=== PATIENT | male | born 1995 | race Two or more races ===

== ENCOUNTER 2023-03-28 19:11 | Inpatient (IN) | payer OTHER ==
[2023-03-28 22:33] VITALS: BMI 24.7
[2023-03-28] MEDS ORDERED: NALOXONE HCL 0.4 MG/ML VIAL IM PRN (23:52)
[2023-03-28] MEDS ORDERED: BISMUTH SUBSALICYLATE 524 MG/30 ML PO PRN (23:52)
[2023-03-28] MEDS ORDERED: BENZONATATE 200 MG CAPSULE PO PRN (23:52)
[2023-03-28] MEDS ORDERED: IBUPROFEN 600 MG TABLET (FP) PO PRN (23:52)
[2023-03-28] MEDS ORDERED: IBUPROFEN 400 MG TABLET (FP) PO PRN (23:52)
[2023-03-28] MEDS ORDERED: guaiFENesin 600 MG TABLET.ER (FP) PO PRN (23:52)
[2023-03-28] MEDS ORDERED: LOPERAMIDE HCL 2 MG CAPSULE PO PRN (23:52)
[2023-03-28] MEDS ORDERED: ACETAMINOPHEN 325 MG TABLET (FP) PO PRN (23:52)
[2023-03-28] MEDS ORDERED: NICOTINE POLACRILEX 2 MG GUM BUC PRN (23:52)
[2023-03-28] MEDS ORDERED: MAGNESIUM HYDROX 2400MG/30ML ORAL SUSPENSION 30 ML CUP PO PRN (23:52)
[2023-03-28] MEDS ORDERED: MAG HYDROX/AL HYDROX/SIMETH 30 ML UNIT-DOSE CUP PO PRN (23:52)
[2023-03-28] MEDS ORDERED: POLYETHYLENE GLYCOL (HEALTHYLAX) 3350 17 GM PACKET PO PRN (23:52)
[2023-03-28] MEDS ORDERED: P-EPHED 60MG/TRIPROLIDI 2.5MG TABLET PO PRN (23:52)
[2023-03-28] MEDS ORDERED: BENZOCAINE/MENTHOL (CHLORASEPTIC ) LOZENGE MM PRN (23:52)
[2023-03-28] MEDS ORDERED: DICYCLOMINE HCL 10 MG CAPSULE PO PRN (23:52)
[2023-03-28] MEDS ORDERED: NALOXONE HCL (KLOXXADO) 8 MG SPRAY NS PRN (23:52)
[2023-03-29] MEDS ORDERED: methaDONE HCL 10 MG TABLET (FOR DETOX USE ONLY) PO ONE (10:28)
[2023-03-29] MEDS ORDERED: cloNIDine HCL 0.1 MG TABLET PO PRN (10:28)
[2023-03-29] MEDS: PRENATAL VITAMINS W/ FOLIC ACID TABLET (FP) PO SCH (10:50)
[2023-03-29] MEDS: diazePAM 5 MG TABLET PO SCH ×3 (10:59→22:01)
[2023-03-29 11:20] LABS: HEMATOCRIT 34.1 % (35.4-49); HEMOGLOBIN 11.5 GM/dL (11.7-16.9); MCH 29.5 pg (25.7-33.7); MCHC 33.7 g/dl (32.0-35.9); MEAN CELL VOLUME 87.4 fl (80-96); MEAN PLT VOLUME 9.6 fl (7.5-11.1); PLATELET COUNT 143 10^3/uL (134-434); RDW 12.8 % (11.9-15.9); WHITE BLOOD COUNT 5.2 K/mm3 (4.0-10.0)
[2023-03-29 12:00] LABS: POTASSIUM 3.3 mmol/L (3.5-5.1)
[2023-03-29 12:02] LABS: CALCIUM 8.3 mg/dL (8.5-10.1)
[2023-03-29 12:03] LABS: ALBUMIN 3.2 g/dl (3.4-5.0); BLOOD UREA NITROGEN 13.3 mg/dL (7-18)
[2023-03-29] MEDS ORDERED: POTASSIUM CHLORIDE ORAL LIQUID 20 MEQ/15 ML PO ONE (12:03)
[2023-03-29 12:06] LABS: CREATININE 0.9 mg/dL (0.55-1.3)
[2023-03-29 12:07] LABS: BILIRUBIN,TOTAL 0.5 mg/dL (0.2-1)
[2023-03-29] MEDS: MELATONIN 5 MG TABLETS PO SCH (21:55)
[2023-03-29] MEDS: METHOCARBAMOL 500 MG TABLET PO PRN (21:55)
[2023-03-29] MEDS: POTASSIUM CHLORIDE ORAL LIQUID 20 MEQ/15 ML PO SCH (21:55)
[2023-03-29] MEDS: THIAMINE HCL 100 MG TABLET (FP) PO SCH (21:55)
[2023-03-30] MEDS: diazePAM 5 MG TABLET PO SCH ×4 (06:00→22:48)
[2023-03-30] MEDS: PRENATAL VITAMINS W/ FOLIC ACID TABLET (FP) PO SCH (09:45)
[2023-03-30] MEDS: POTASSIUM CHLORIDE ORAL LIQUID 20 MEQ/15 ML PO SCH ×2 (09:45→22:48)
[2023-03-30] MEDS: MELATONIN 5 MG TABLETS PO SCH (22:49)
[2023-03-30] MEDS: THIAMINE HCL 100 MG TABLET (FP) PO SCH (22:49)
[2023-03-31] MEDS: diazePAM 5 MG TABLET PO SCH ×3 (06:17→21:44)
[2023-03-31] MEDS: PRENATAL VITAMINS W/ FOLIC ACID TABLET (FP) PO SCH (09:32)
[2023-03-31] MEDS: diazePAM 5 MG TABLET PO PRN (09:33)
[2023-03-31] MEDS: POTASSIUM CHLORIDE ORAL LIQUID 20 MEQ/15 ML PO SCH (09:33)
[2023-03-31] MEDS: METHOCARBAMOL 500 MG TABLET PO PRN ×2 (09:33→21:43)
[2023-03-31] MEDS ORDERED: methaDONE HCL 10 MG TABLET (FOR DETOX USE ONLY) PO ONE (10:00)
[2023-03-31] MEDS: MELATONIN 5 MG TABLETS PO SCH (21:43)
[2023-03-31] MEDS: hydrOXYzine PAMOATE 25 MG CAPSULE (FP) PO PRN (21:43)
[2023-03-31] MEDS: THIAMINE HCL 100 MG TABLET (FP) PO SCH (21:44)
[2023-04-01] MEDS: diazePAM 5 MG TABLET PO SCH ×2 (05:50→17:15)
[2023-04-01] MEDS: PRENATAL VITAMINS W/ FOLIC ACID TABLET (FP) PO SCH (09:53)
[2023-04-01] MEDS: METHOCARBAMOL 500 MG TABLET PO PRN ×2 (09:53→20:59)
[2023-04-01] MEDS: diazePAM 5 MG TABLET PO PRN (09:54)
[2023-04-01] MEDS: ONDANSETRON *ODT* 4 MG TABLET SL PRN (17:15)
[2023-04-01] MEDS: hydrOXYzine PAMOATE 25 MG CAPSULE (FP) PO PRN (20:59)
[2023-04-01] MEDS: THIAMINE HCL 100 MG TABLET (FP) PO SCH (20:59)
[2023-04-01] MEDS: MELATONIN 5 MG TABLETS PO SCH (20:59)
[2023-04-02] MEDS ORDERED: diazePAM 5 MG TABLET PO ONE (06:00)
[2023-04-02] MEDS ORDERED: methaDONE HCL 10 MG TABLET (FOR DETOX USE ONLY) PO ONE (10:00)
[2023-04-02] MEDS: PRENATAL VITAMINS W/ FOLIC ACID TABLET (FP) PO SCH (10:21)
[2023-04-02] MEDS: MELATONIN 5 MG TABLETS PO SCH (22:23)
[2023-04-02] MEDS: THIAMINE HCL 100 MG TABLET (FP) PO SCH (22:23)
[2023-04-02] MEDS: METHOCARBAMOL 500 MG TABLET PO PRN (22:24)
[2023-04-02] MEDS: hydrOXYzine PAMOATE 25 MG CAPSULE (FP) PO PRN (22:24)
[2023-04-03] MEDS: PRENATAL VITAMINS W/ FOLIC ACID TABLET (FP) PO SCH (10:47)
[2023-04-03] MEDS: ONDANSETRON *ODT* 4 MG TABLET SL PRN (12:44)
[2023-04-03 15:03] LABS: PHENCYCLIDINE,URINE NEGATIVE (NEGATIVE)
[2023-04-03 15:04] LABS: OPIATES, URI NEGATIVE (NEGATIVE); URINE AMPHETAMINES NEGATIVE (NEGATIVE); URINE BARBITURATES NEGATIVE (NEGATIVE)
[2023-04-03 15:09] LABS: COCAINE, UR POSITIVE (NEGATIVE); METHADONE, UR POSITIVE (NEGATIVE); URINE BENZODIAZEPINES POSITIVE (NEGATIVE)
[2023-04-03] MEDS: hydrOXYzine PAMOATE 25 MG CAPSULE (FP) PO PRN (17:00)
[2023-04-03] MEDS: METHOCARBAMOL 500 MG TABLET PO PRN (17:00)
[2023-04-03] MEDS ORDERED: TRIMETHOBENZAMIDE HCL 200MG/2ML INJ IM ONE (21:23)
[2023-04-03] MEDS: THIAMINE HCL 100 MG TABLET (FP) PO SCH (22:13)
[2023-04-03] MEDS: MELATONIN 5 MG TABLETS PO SCH (22:13)
[2023-04-04] MEDS: ONDANSETRON *ODT* 4 MG TABLET SL PRN (03:09)
[2023-04-04] MEDS ORDERED: TRIMETHOBENZAMIDE HCL 200MG/2ML INJ IM ONE (04:05)
[2023-04-04] MEDS: PRENATAL VITAMINS W/ FOLIC ACID TABLET (FP) PO SCH (10:53)
[2023-04-04] MEDS ORDERED: TRIMETHOBENZAMIDE HCL 200MG/2ML INJ IM PRN (15:07)
[2023-04-04] MEDS ORDERED: PROCHLORPERAZINE MALEATE 5 MG TABLET PO ONE ×2 (15:39→16:30)
[2023-04-04] MEDS: hydrOXYzine PAMOATE 25 MG CAPSULE (FP) PO PRN (17:58)
[2023-04-04] MEDS: MELATONIN 5 MG TABLETS PO SCH (21:57)
[2023-04-04] MEDS: FAMOTIDINE 20 MG TABLET PO SCH (21:57)
[2023-04-04] MEDS: THIAMINE HCL 100 MG TABLET (FP) PO SCH (21:57)
[2023-04-05 09:15] VITALS: RESP 18
[2023-04-05] MEDS: PRENATAL VITAMINS W/ FOLIC ACID TABLET (FP) PO SCH (10:31)
[2023-04-05] MEDS: FAMOTIDINE 20 MG TABLET PO SCH (10:31)
[2023-04-05 13:03] VITALS: BP 135/69; PULSE 70; TEMP 97.5
== END 2023-04-05 13:40 | disposition home or self-care (01) | DRG 773 ==
LOC: YASAS 19:11 → Y3N 03-29 03:21 → Y6N 03-31 21:07 → Y3N 03-31 21:39 → Y6N 04-02 18:58
PROVIDERS: ADMIT Allergy & Immunology; ATTEND Surgery
PROC: HZ2ZZZZ Detoxification Services for Substance Abuse Treatment (ICD-10-PCS; principal; 2023-03-29)
DX: F11.23 Opioid dependence with withdrawal (principal); F13.230 Sedative, hypnotic or anxiolytic dependence with withdrawal, uncomplicated; F14.20 Cocaine dependence, uncomplicated; F12.20 Cannabis dependence, uncomplicated; F17.290 Nicotine dependence, other tobacco product, uncomplicated; U07.1 COVID-19; R11.2 Nausea with vomiting, unspecified; Z88.0 Allergy status to penicillin
CPT/HCPCS: 36415; 80053; 80307; 84132; 85027; 86780; 87635; 87811; 93005; 93010; Q0162